=== PATIENT | female | born 1995 | race African-American/Black ===

== ENCOUNTER 2017-01-19 20:39 | Emergency (ER) | payer OTHER ==
[~2017-01-19] VITALS: Ht 165.1 cm; Wt 69.8 kg
[~2017-01-19 20:39] MED LIST: ADVIL200 M3 PO; ENDOCET 5-3251 EACH PO; FEOSOL325 MG PO; FLINTSTONES1 EACH PO; IBUPROFEN800 MG PO; NOHOMEMEDS; PERCOCET 5/31 TABLET PO; PROMETHAZINE HC25 M1 PO; ULTRACET1 TABLET PO; ZOFRAN4 MG PO
[2017-01-19] MEDS ORDERED: OMNICEF300 MG PO (21:34)
[2017-01-19] MEDS ORDERED: MOTRIN600 MG PO (21:34)
[2017-01-19 21:45] VITALS: BP 129/82
[2017-01-19] MEDS ORDERED: CIPRO HC OTIC S10 ML RIGHT EAR (21:45)
[2017-01-19] MEDS ORDERED: METRONIDAZOLE500 MG PO (21:46)
[2017-01-19] MEDS ORDERED: MEDROXYPRO150 MG/1 M IM (21:47)
[2017-01-19] MEDS ORDERED: CEPHALEXIN500 M1 PO (21:47)
[2017-01-19] MEDS ORDERED: FLUCONAZOLE150 MG PO (21:47)
== END 2017-01-19 21:45 | disposition home or self-care (01) ==
LOC: EME 20:39
DX: H66.91 Otitis media, unspecified, right ear (principal); H60.91 Unspecified otitis externa, right ear; R07.0 Pain in throat; R11.2 Nausea with vomiting, unspecified; F17.200 Nicotine dependence, unspecified, uncomplicated
CPT/HCPCS: 99281; 99284

== ENCOUNTER 2018-03-18 18:41 | Emergency (ER) | payer OTHER ==
[~2018-03-18] VITALS: Ht 165.1 cm; Wt 63.0 kg
[~2018-03-18 18:41] MED LIST changes: +CEPHALEXIN500 M1 PO; +CIPRO HC OTIC S10 ML RIGHT EAR; +FLUCONAZOLE150 MG PO; +MEDROXYPRO150 MG/1 M IM; +METRONIDAZOLE500 MG PO; +MOTRIN600 MG PO; +OMNICEF300 MG PO
[2018-03-18 21:10] LABS: APPEARANCE CLEAR ((CLEAR)); BILIRUBIN NEGATIVE; BLOOD NEGATIVE; COLOR YELLOW ((YELLOW)); GLUCOSE (STRIP) NEGATIVE; KETONES NEGATIVE; LEUKOCYTES NEGATIVE; NITRITE NEGATIVE; PROTEIN (STRIP) NEGATIVE; SPECIFIC GRAVITY 1.026 (1.000-1.030); UCUL ADDED? NO
[2018-03-18] MEDS ORDERED: NAPROSYN500 MG PO (21:40)
[2018-03-18 21:44] VITALS: BP 110/58
== END 2018-03-18 21:44 | disposition home or self-care (01) ==
LOC: EME 18:41
PROVIDERS: Physician Assistant
DX: S39.012A Strain of muscle, fascia and tendon of lower back, initial encounter (principal); Y93.01 Activity, walking, marching and hiking; F17.200 Nicotine dependence, unspecified, uncomplicated
CPT/HCPCS: 81003; 81025; 99281; 99284

== ENCOUNTER 2018-04-07 21:13 | Emergency (ER) | payer OTHER ==
[~2018-04-07] VITALS: Ht 165.1 cm; Wt 61.6 kg
[~2018-04-07 21:13] MED LIST changes: +NAPROSYN500 MG PO
[2018-04-07 23:08] LABS: HEMATOCRIT 34.8 % (36.0-46.0); HEMOGLOBIN 11.9 G/DL (11.9-15.5); MCH 30.7 PG (29.0-34.0); MCHC 34.2 G/DL (30.0-36.0); MCV 89.9 FL (83-99); PLATELET COUNT 229 K/uL (156-360); RBC DIS.WIDTH-CV 12.7 % (11.8-14.6); RBC DIS.WIDTH-SD 41.7 % (39-53); RED BLOOD COUNT 3.87 M/uL (3.80-5.20)
[2018-04-07 23:16] LABS: CHLORIDE 107 mEq/L (99-109); POTASSIUM 3.6 mEq/L (3.7-5.4); SODIUM 139 mEq/L (136-147)
[2018-04-07 23:18] LABS: GLUCOSE 99 mg/dL (70-99)
[2018-04-07 23:22] LABS: CREATININE 0.8 mg/dL (0.6-1.3); GFR ESTIMATE (CALCULATED) > 59 mL/min/
[2018-04-07 23:23] LABS: UREA NITROGEN (BUN) 9 mg/dL (9-23)
[2018-04-07 23:32] LABS: QUANTITATIVE HCG < 4.0 MIU/ML
[2018-04-07 23:34] LABS: APPEARANCE CLEAR ((CLEAR)); BILIRUBIN NEGATIVE; BLOOD NEGATIVE; COLOR YELLOW ((YELLOW)); GLUCOSE (STRIP) NEGATIVE; KETONES NEGATIVE; LEUKOCYTES NEGATIVE; NITRITE NEGATIVE; PROTEIN (STRIP) NEGATIVE
[2018-04-07 23:44] LABS: AMPHETAMINE NEGATIVE (500 ng/mL); BARBITURATES NEGATIVE (200 ng/mL); BENZODIAZEPINES NEGATIVE (150 ng/mL); BUPRENORPHINE NEGATIVE (10 ng/mL); COCAINE NEGATIVE (150 ng/mL); METHADONE NEGATIVE (200 ng/mL); METHAMPHETAMINE NEGATIVE (500 ng/mL); OPIATES (MORPHINE) NEGATIVE (100 ng/mL); OXYCODONE NEGATIVE (100 ng/mL); PHENCYCLIDINE NEGATIVE (25 ng/mL); PROPOXYPHENE NEGATIVE (300 ng/mL); THC CANNABINOIDS PRESUMPTIVE POSITIVE (50 ng/mL); TRICYCLIC ANTIDEPRESSANTS NEGATIVE (300 ng/mL)
[2018-04-07 23:57] LABS: SERUM ETHYL ALCOHOL < 10 mg/dL
[2018-04-08 15:33] VITALS: BP 111/57
== END 2018-04-08 15:39 ==
LOC: EME 21:13
PROVIDERS: Nurse Practitioner Family
DX: S70.01XA Contusion of right hip, initial encounter (principal); S40.021A Contusion of right upper arm, initial encounter; S40.022A Contusion of left upper arm, initial encounter; R45.851 Suicidal ideations; F33.2 Major depressive disorder, recurrent severe without psychotic features; V48.0XXA Car driver injured in noncollision transport accident in nontraffic accident, initial encounter; Y92.410 Unspecified street and highway as the place of occurrence of the external cause; F12.90 Cannabis use, unspecified, uncomplicated; Z91.5 Personal history of self-harm; J45.909 Unspecified asthma, uncomplicated; F17.200 Nicotine dependence, unspecified, uncomplicated
CPT/HCPCS: 80048; 81003; 84702; 84999; 85027; 90837; 99281; 99284; G0480; J1630; J2060

== ENCOUNTER 2018-04-18 19:21 | Emergency (ER) | payer OTHER ==
[~2018-04-18] VITALS: Ht 165.1 cm; Wt 92.7 kg
[2018-04-18 20:00] LABS: HEMATOCRIT 35.4 % (36.0-46.0); HEMOGLOBIN 12.2 G/DL (11.9-15.5); MCH 30.8 PG (29.0-34.0); MCHC 34.5 G/DL (30.0-36.0); MCV 89.4 FL (83-99); RBC DIS.WIDTH-CV 13.1 % (11.8-14.6); RBC DIS.WIDTH-SD 43.5 % (39-53); RED BLOOD COUNT 3.96 M/uL (3.80-5.20); WHITE BLOOD COUNT 4.8 K/uL (4.1-10.2)
[2018-04-18 20:36] LABS: CHLORIDE 106 mEq/L (99-109); POTASSIUM 3.8 mEq/L (3.7-5.4); SODIUM 138 mEq/L (136-147)
[2018-04-18 20:38] LABS: GLUCOSE 90 mg/dL (70-99)
[2018-04-18 20:41] LABS: SERUM ETHYL ALCOHOL < 10 mg/dL
[2018-04-18 20:42] LABS: CREATININE 0.7 mg/dL (0.6-1.3); GFR ESTIMATE (CALCULATED) > 59 mL/min/
[2018-04-18 20:43] LABS: UREA NITROGEN (BUN) 8 mg/dL (9-23)
[2018-04-18 20:46] LABS: AMPHETAMINE NEGATIVE (500 ng/mL); BARBITURATES NEGATIVE (200 ng/mL); BENZODIAZEPINES NEGATIVE (150 ng/mL); BUPRENORPHINE NEGATIVE (10 ng/mL); COCAINE NEGATIVE (150 ng/mL); METHADONE NEGATIVE (200 ng/mL); METHAMPHETAMINE NEGATIVE (500 ng/mL); OPIATES (MORPHINE) NEGATIVE (100 ng/mL); OXYCODONE NEGATIVE (100 ng/mL); PHENCYCLIDINE NEGATIVE (25 ng/mL); PROPOXYPHENE NEGATIVE (300 ng/mL); THC CANNABINOIDS PRESUMPTIVE POSITIVE (50 ng/mL); TRICYCLIC ANTIDEPRESSANTS NEGATIVE (300 ng/mL)
[2018-04-18 20:47] LABS: QUANTITATIVE HCG < 4.0 MIU/ML
[2018-04-18 21:05] LABS: PLAT.SUFFICIENCY ADEQUATE
[2018-04-18 21:07] LABS: PLATELET COUNT 301 K/uL (156-360)
[2018-04-19 00:10] VITALS: BP 114/72
== END 2018-04-19 00:12 | disposition home or self-care (01) ==
LOC: EME → EDBD 19:21 → EME 19:21
DX: F33.9 Major depressive disorder, recurrent, unspecified (principal); F12.90 Cannabis use, unspecified, uncomplicated; J45.909 Unspecified asthma, uncomplicated; F17.200 Nicotine dependence, unspecified, uncomplicated
CPT/HCPCS: 80048; 84702; 84999; 85027; 90837; 93005; 99281; 99284; G0480

== ENCOUNTER 2018-05-02 02:33 | Emergency (ER) | payer OTHER ==
[~2018-05-02] VITALS: Ht 165.1 cm; Wt 61.2 kg
[2018-05-02 03:05] LABS: HEMATOCRIT 35.9 % (36.0-46.0); HEMOGLOBIN 12.5 G/DL (11.9-15.5); MCH 30.5 PG (29.0-34.0); MCHC 34.8 G/DL (30.0-36.0); MCV 87.6 FL (83-99); RBC DIS.WIDTH-CV 13.1 % (11.8-14.6); RBC DIS.WIDTH-SD 42.1 % (39-53); WHITE BLOOD COUNT 14.6 K/uL (4.1-10.2)
[2018-05-02 03:11] LABS: CHLORIDE 104 mEq/L (99-109); POTASSIUM 3.7 mEq/L (3.7-5.4); SODIUM 136 mEq/L (136-147)
[2018-05-02 03:12] LABS: GLUCOSE 115 mg/dL (70-99)
[2018-05-02 03:16] LABS: CREATININE 0.8 mg/dL (0.6-1.3); GFR ESTIMATE (CALCULATED) > 59 mL/min/
[2018-05-02 03:17] LABS: UREA NITROGEN (BUN) 6 mg/dL (9-23)
[2018-05-02 03:25] LABS: QUANTITATIVE HCG < 4.0 MIU/ML
[2018-05-02 03:46] LABS: PLATELET CLUMPS PRESENT - PLATELET COUNT APPEARS ADQ.; PLATELET COUNT UNABLE TO REPORT K/uL (156-360)
[2018-05-02] MEDS ORDERED: INDOCIN50 MG PO (04:00)
[2018-05-02 04:17] LABS: SOURCE URINE
[2018-05-02 04:22] LABS: APPEARANCE SL.HAZY ((CLEAR)); BILIRUBIN NEGATIVE; BLOOD MODERATE; COLOR YELLOW ((YELLOW)); GLUCOSE (STRIP) NEGATIVE; KETONES NEGATIVE; LEUKOCYTES SMALL; NITRITE NEGATIVE; PROTEIN (STRIP) NEGATIVE; SPECIFIC GRAVITY 1.019 (1.000-1.030); UROBILINOGEN 0.2 MG/DL (0.2-1.0)
[2018-05-02 04:26] LABS: BACTERIA RARE /HPF; EPITHELIAL CELLS 1+ /HPF; MUCUS TRACE /LPF; RED BLOOD CELLS 0-5 /HPF (0-5); WHITE BLOOD CELLS 20-30 /HPF (0-5)
[2018-05-02 04:30] VITALS: BP 106/65
[2018-05-03 14:27] LABS: CHLAMYDIA TRACHOMATIS NEGATIVE; NEISSERIA GONORRHOEAE POSITIVE
== END 2018-05-02 04:34 | disposition home or self-care (01) ==
LOC: EME 02:33
PROVIDERS: Physician Assistant
DX: R10.2 Pelvic and perineal pain (principal); N94.10 Unspecified dyspareunia; N93.8 Other specified abnormal uterine and vaginal bleeding; J45.909 Unspecified asthma, uncomplicated; F32.9 Major depressive disorder, single episode, unspecified; F17.200 Nicotine dependence, unspecified, uncomplicated
CPT/HCPCS: 76856; 80048; 81003; 84702; 85027; 87491; 87591; 93975; 99281; 99284; J1885; J3010

== ENCOUNTER 2018-05-02 23:20 | Emergency (ER) | payer OTHER ==
[~2018-05-02] VITALS: Ht 165.1 cm; Wt 61.9 kg
[~2018-05-02 23:20] MED LIST changes: +INDOCIN50 MG PO
[2018-05-02 23:28] VITALS: BP 128/82
[2018-05-03 00:38] LABS: HEMATOCRIT 33.7 % (36.0-46.0); HEMOGLOBIN 11.7 G/DL (11.9-15.5); MCH 30.5 PG (29.0-34.0); MCHC 34.7 G/DL (30.0-36.0); MCV 87.8 FL (83-99); RBC DIS.WIDTH-CV 12.8 % (11.8-14.6); RBC DIS.WIDTH-SD 41.1 % (39-53); RED BLOOD COUNT 3.84 M/uL (3.80-5.20); WHITE BLOOD COUNT 18.8 K/uL (4.1-10.2)
[2018-05-03 00:52] LABS: ALBUMIN 4.2 g/dL (3.2-4.8); CHLORIDE 105 mEq/L (99-109); POTASSIUM 3.4 mEq/L (3.7-5.4); SODIUM 138 mEq/L (136-147)
[2018-05-03 00:54] LABS: GLUCOSE 113 mg/dL (70-99); TOTAL PROTEIN 7.6 g/dL (6.4-8.3)
[2018-05-03 00:56] LABS: TOTAL BILIRUBIN 0.7 mg/dL (0.0-1.0)
[2018-05-03 00:58] LABS: ALKALINE PHOSPHATASE 93 IU/L (3-129); CREATININE 0.7 mg/dL (0.6-1.3); GFR ESTIMATE (CALCULATED) > 59 mL/min/
[2018-05-03 00:59] LABS: UREA NITROGEN (BUN) 8 mg/dL (9-23)
[2018-05-03 01:00] LABS: AST (GOT) 16 IU/L (2-34)
[2018-05-03 01:01] LABS: ALT (GPT) 24 IU/L (3-49); LIPASE 13 U/L (1.0-51.0)
[2018-05-03 01:07] LABS: QUANTITATIVE HCG < 4.0 MIU/ML
[2018-05-03 01:49] LABS: PLATELET COUNT 189 K/uL (156-360)
== END 2018-05-03 01:54 | disposition left against medical advice (07) ==
LOC: EME 23:20
DX: R10.84 Generalized abdominal pain (principal); R11.2 Nausea with vomiting, unspecified; Z53.21 Procedure and treatment not carried out due to patient leaving prior to being seen by health care provider
CPT/HCPCS: 80053; 81003; 83690; 84702; 85027